=== PATIENT | male | born 1985 | race Caucasian/White ===

== ENCOUNTER 2017-05-27 10:46 | Emergency (ER) | payer SELFPAY ==
[2017-05-27 11:02] VITALS: BP 139/81
[2017-05-27] MEDS ORDERED: LIDOCAINE HCL 20 ML VIAL ONE (11:07)
[2017-05-27] MEDS ORDERED: DIPHTH,PERTUSS(ACELL),TET VAC 0.5 ML VIAL IM ONE ×2 (11:21→11:30)
[2017-05-27] MEDS ORDERED: ACETAMINOPHEN 325 MG TABLET ONE (11:30)
[2017-05-27] MEDS ORDERED: ACETAMINOPHEN 325 MG TABLET PO ONE (11:45)
--- NOTE | 2017-05-27 12:09 | ERNOTE ---
Upper Extremity HPI - Narrative Date of Service: 05/27/17 - General Extremities Pain Location: hand: right Time Seen by Provider: 05/27/17 11:20 Source: patient, RN notes reviewed Exam Limitations: no limitations - Immun/Allergies/Home Medications Immunizations: IMMUNIZATION HX Immunizations Up to Date No History of Influenza Vaccine No Hx Pneumococcal Vaccination No Allergies/Adverse Reactions: Allergies Allergy/AdvReac Type Severity Reaction Status Date / Time meperidine Allergy Severe Anaphylaxis Verified 05/27/17 10:57 Home Medications: HOME MEDICATIONS Ibuprofen [Motrin] 800 mg PO TID PRN #30 tab 05/27/17 [Last Taken Unknown] - History of Present Illness Narrative: Judson is a 32-year-old male who presents to the emergency Department by private vehicle for laceration to the dorsum of his right hand that occurred at approximately 1045 this morning. He reports cleaning in his fathers garage and he was digging through some trash that had pieces of metal in it when he cut himself. He is unsure exactly what cut him. He does not recall when he last had a tetanus vaccination. He denies any other injuries. Occurred: just prior to arrival Location of Incident: other Associated Symptoms: Denies: tingling, weakness, numbness distally Other Injuries: Reports: none Prior Treament: Denies: recently seen Review of Systems - Review of Systems Constitutional: Absent: recent illness, fever, chills EYE: Present: no symptoms reported ENT: Present: no symptoms reported Respiratory: Absent: shortness of breath, cough, other Cardiology: Absent: syncope Gastrointestinal/Abdominal: Absent: nausea, vomiting, abdominal pain Genitourinary: Present: no symptoms reported Musculoskeletal: Absent: joint pain, joint swelling Skin: Absent: rash, lesions, change in color Neurological: Absent: headache, dizziness/light-headedness Endocrine: Present: no symptoms reported Hematologic/Lymphatic: Absent: easy bruising, easy bleeding Psych: Present: no symptoms reported - Patient's Past Medical History Patient History - Medical: No pertinent hx Patient History - Cardiac/Respiratory: No pertinent hx Patient History - Cancer: No Hx of Cancer Patient History - Surgical Procedures: No surgical history Patient History - Other: None - Social History Living Situations: home Abuse History: No History of abuse Psych History: No pertinent hx Smoking Status: Current every day smoker Have you smoked in the past 12 months: Yes Alcohol Use: rarely Drug Use: none - Immunizations Immunizations Up to Date: No Hx Pneumococcal Vaccination: No History of Influenza Vaccine: No Physical Exam - Physical Exam General Appearance: Present: wd/wn, alert, anxious Respiratory: Present: no respiratory distress, no accessory muscle use Cardiovascular/Chest: Present: normal peripheral pulses Peripheral Pulses: N=norm/S=strong/W=weak/B=bound/A=absent: Radial (R): Strong Extremity Exam: Present: normal range of motion, no edema Neurological Exam: Present: alert, oriented, normal mood/affect, no motor/ sensory deficits Skin Exam: Present: normal color, warm/dry, other - Laceration to dorsum of right hand ED Progress - Vital Signs Patient's Vital Signs:: I have reviewed the patient's vital signs. Vital Signs: Vital Signs 05/27/17 10:58 Temperature 37.4 C Pulse Rate 120 H Respiratory 17 Rate Blood Pressure 139/81 O2 Sat by Pulse 96 Oximetry - Progress/Reassessment Chief Complaint: Laceration Progress:: Unchanged Procedures Right Dorsal Hand Anesthesia: 2% Lidocaine Length of Repair/Wound (cm): 3 Wound's Depth/Shape: into subcutaneous, linear Wound Explored: clean, to base, in bloodless field, no foreign body Wound Intervention: other - Soaked in chlorhexidine and water Distal NVT: neuro/vasc intact, no tendon injury Suture Size/Type: 5-0, nylon Number of Sutures: 5 Layer Closure: Simple Wound Dressing: sterile dressing applied Complications: Pt gabi procedure well Departure Clinical Impression: Laceration of hand Qualifiers: Encounter type: initial encounter Foreign body presence: without foreign body Laterality: right Qualified Code(s): S61.411A - Laceration without foreign body of right hand, initial encounter - Departure Disposition: Home Follow Up Needed Condition: Good Instructions: Sutured Wound Care, [id number] Additional Instructions: Keep dressing dry and in place for 48 hours May then wash gently with soap and water Apply antibiotic ointment twice a day Bandage as needed Cold compresses and elevate to help with pain Have sutures removed in 7 to 10 days Prescriptions: Ibuprofen [Motrin] 800 mg PO TID PRN #30 tab PRN Reason: Pain
== END 2017-05-27 12:20 | disposition home or self-care (01) ==
LOC: ER 10:46
PROC: 0JQJ0ZZ Repair Right Hand Subcutaneous Tissue and Fascia, Open Approach (ICD-10-PCS; principal; 2017-05-27)
DX: S61.411A Laceration without foreign body of right hand, initial encounter (principal); Z23 Encounter for immunization; F17.200 Nicotine dependence, unspecified, uncomplicated; W45.8XXA Other foreign body or object entering through skin, initial encounter; Y93.H9 Activity, other involving exterior property and land maintenance, building and construction; Y92.008 Other place in unspecified non-institutional (private) residence as the place of occurrence of the external cause

== ENCOUNTER 2017-11-20 09:31 | Emergency (ER) | payer SELFPAY ==
[2017-11-20 10:20] LABS: Urine Bilirubin Negative (NEGATIVE); Urine Blood 50 /ul (NEGATIVE); Urine Ketone Negative (NEGATIVE); Urine Nitrite Negative (NEGATIVE); Urine Protein 15 mg/dL (NEGATIVE); Urine Specific Gravity >=1.030 SP.GR. (1.005-1.030); Urine Urobilinogen Normal (NORMAL)
--- NOTE | 2017-11-20 10:21 | ERNOTE ---
ER Male HPI Date of Service: 11/20/17 Stated Complaint: GENITAL ISSUES ER Male: penile discharge, dysuria, testicular pain Time Seen by Provider: 11/20/17 09:46 Source: patient Exam Limitations: no limitations Immunizations: IMMUNIZATION HX Immunizations Up to Date No History of Influenza Vaccine No Hx Pneumococcal Vaccination No Allergies/Adverse Reactions: Allergies meperidine Allergy (Severe, Verified 11/20/17 09:41) Anaphylaxis Home Medications: HOME MEDICATIONS Ibuprofen [Motrin] 800 mg PO TID PRN #30 tab 05/27/17 [Last Taken Unknown] Doxycycline Hyclate [Vibratab] 100 mg PO BID #20 tab 11/20/17 [Last Taken Unknown] - History of Present Illness Narrative: Pt. comes in with c/o dysuria, purulent discharge from his penis for two days pt. states that he also has had some testicular pain today as well. Pt. denies any SOB, CP, NVD, fever, alleviating factors, aggravating factors, or prehospital treatment. Pt. states that he has had unprotected sex with two partners in the past month. Pt. states taht he has had chlamydia in the past and this is very similar. Review of Systems - Review of Systems Constitutional: Present: no symptoms reported. Absent: fever, chills, weakness , fatigue, malaise EYE: Present: no symptoms reported ENT: Present: no symptoms reported Respiratory: Present: no symptoms reported. Absent: shortness of breath, cough , wheezing Cardiology: Present: no symptoms reported. Absent: chest pain, palpitations, edema Gastrointestinal/Abdominal: Present: no symptoms reported. Absent: nausea, vomiting, diarrhea, abdominal pain Genitourinary: Present: frequency, pain - testicular, dysuria, discharge. Absent: hematuria, decreased urinary output Musculoskeletal: Present: no symptoms reported. Absent: back pain, neck pain, joint pain Skin: Present: no symptoms reported. Absent: rash, change in color Neurological: Present: no symptoms reported. Absent: headache, dizziness/light- headedness, numbness, tingling Endocrine: Present: no symptoms reported Hematologic/Lymphatic: Present: no symptoms reported All Other Systems: All systems neg except as marked - Patient's Past Medical History Patient History - Medical: No pertinent hx Patient History - Cardiac/Respiratory: No pertinent hx Patient History - Cancer: No Hx of Cancer Patient History - Surgical Procedures: No surgical history Patient History - Other: None - Social History Living Situations: home Abuse History: No History of abuse Psych History: No pertinent hx - Immunizations Immunizations Up to Date: No Hx Pneumococcal Vaccination: No History of Influenza Vaccine: No Physical Exam - Physical Exam General Appearance: Present: wd/wn, alert, no apparent distress Head Exam: Present: normal inspection, no evidence of injury Eye Exam: Normal inspection: bilateral Respiratory: Present: no respiratory distress, normal breath sounds, no accessory muscle use, chest nontender, lungs clear Cardiovascular/Chest: Present: regular rate, rhythm, no murmur, normal peripheral pulses Gastrointestinal/Abdominal: Present: normal bowel sounds, nontender, nondistended, soft, no organomegaly Male Genitals Exam: Present: no hernia, epididymal tenderness, urethral discharge - purulent. Absent: inguinal tenderness, scrotum tenderness (R), scrotum tenderness (L), testicular tenderness (R), testicular tenderness (L) Back Exam: Present: normal inspection, normal range of motion, no CVA tenderness , no vertebral tenderness Extremity Exam: Present: normal inspection, non-tender, normal range of motion, no edema Neurological Exam: Present: alert, oriented, normal mood/affect, no motor/ sensory deficits ED Progress - Date and Time Seen: Date and Time: 11/20/17 10:55 Feel that this is likely related to a STD so will empyrically treat with Rocephin, Azithromycin and Doxycycline. Will await urine culture and GC chamydia urine - Results and Orders Patient's Lab Results:: I have reviewed the patient's lab results. - Vital Signs Patient's Vital Signs:: I have reviewed the patient's vital signs. Vital Signs: Vital Signs 11/20/17 11/20/17 09:37 10:04 Temperature 36.4 C L Pulse Rate 96 94 Respiratory 12 12 Rate Blood Pressure 123/77 124/78 O2 Sat by Pulse 99 99 Oximetry - Progress/Reassessment Chief Complaint: Genitourinary Problem Departure Clinical Impression: UTI (urinary tract infection) with pyuria - Departure Disposition: Home self-care Condition: Good Instructions: Sexually Transmitted Disease, [id number] Additional Instructions: Please take all antibiotics. Your results will be ready in 3-4 days and we will call you with results. Please refrain from intercourse until finished with antibiotics. Prescriptions: Doxycycline Hyclate [Vibratab] 100 mg PO BID #20 tab
[2017-11-20 10:29] LABS: Urine Appearance Cloudy; Urine Bacteria 3+; Urine Color Yellow; Urine RBC >50 /hpf (0-5); Urine WBC >50 /hpf (0-5)
[2017-11-20] MEDS ORDERED: AZITHROMYCIN 250 MG TABLET PO ONE (11:00)
[2017-11-20] MEDS ORDERED: AZITHROMYCIN 250 MG TABLET ONE (11:06)
[2017-11-20 11:15] VITALS: BP 132/78
== END 2017-11-20 11:25 | disposition home or self-care (01) ==
LOC: ER 09:31
DX: N39.0 Urinary tract infection, site not specified (principal)